=== PATIENT | female | born 1975 | race Caucasian/White ===

== ENCOUNTER → 2016-04-05 | Outpatient (CLI) | payer OTHER ==
[~2016-04-05] MED LIST: ALBUAER19 INH; ARMO1TAB PO; CLL250 PO; CLX/20 PO; FLUV100T12 PO; LEVO25TA5 PO; LEVO50TA6 PO; MONT1TAB3 PO; ONDA4TAB10 SL; PYRI60TA2 PO
== END | disposition home or self-care (01) ==
LOC: C.LAB 16:19
PROVIDERS: ATTEND Obstetrics & Gynecology
DX: Z20.2 Contact with and (suspected) exposure to infections with a predominantly sexual mode of transmission (principal)

== ENCOUNTER 2016-04-27 10:05 | Emergency (ER) | payer OTHER ==
[~2016-04-27] VITALS: Ht 170.2 cm; Wt 77.9 kg
[~2016-04-27 10:05] MED LIST changes: -LEVO50TA6 PO; -ONDA4TAB10 SL
[2016-04-27 10:10] VITALS: TEMP 37.1; Ht 170.2 cm; Wt 77.9 kg
[2016-04-27] MEDS ORDERED: SODIUM CHLORIDE 0.9% 1000ML 1,000 ML IV STA (10:26)
[2016-04-27] MEDS ORDERED: KETOROLAC TROMETHAMINE 30 MG/ML VIAL IV STA (10:26)
[2016-04-27] MEDS ORDERED: PROCHLORPERAZINE 5 MG/ML 2 ML VIAL IV STA (10:26)
[2016-04-27] MEDS ORDERED: DiphenhydrAMINE HCL 50 MG/ML VIAL IV STA (10:26)
[2016-04-27] MEDS ORDERED: DEXAMETHASONE SOD INJ 10 MG/ML VIAL IV ONE (10:30)
--- NOTE | 2016-04-27 10:30 | EMERGENCY ROOM VISIT NOTE ---
History Report prepared by Matias: Segun Multani Under the Supervision of: Dr. Esau Kilgore M.D. First contact with patient: 10:13 Chief Complaint: DEHYDRATION Stated Complaint: PAIN IN JOINTS, N, MARINO, NO APPETITE AND FLUID INTAK Nursing Triage Summary: pt states was at urgent care on monday dx with sinus infection. loss of appetite since monday has not been eating unable to keep fluids down since yesterday. extreme pain in joints, neck, back, headache pain behind right eye History of Present Illness The patient is a 40 year old female who presents to the Emergency Room with complaints of a persistent severe headache for the past five days. The headache is localized to the front of her forehead and behind the eyes, and is worse on the right side. The patient states that this is the worst headache of her life. She also complains of body aches and vomiting. She has neck pain, which she feels is more muscular. She has been unable to keep fluids down since she started vomiting yesterday and notes that she feels dehydrated. The patient went to an urgent care clinic five days ago and was diagnosed with sinusitis. She never filled her prescription for Augmentin. She has been taking Excedrin and Sudafed OTC. The patient states that she has diarrhea, which is normal for her to have during her period. She has had migraines in the past, which usually include auras. She is not currently experiencing auras. The patient used to take Topamax, but stopped because her headaches resolved. She had brain imaging years ago. The patient followed up with Dr. Clifford, Neurologist, when she was having the headaches. The patient has a history of Myasthenia Gravis. Source of History: patient Onset: five days Position: head Symptom Intensity: severe Timing: other (persistent) Associated Symptoms: + diarrhea, + neck pain, + vomiting Review of Systems See HPI for pertinent positives & negatives. A total of 10 systems reviewed and were otherwise negative. Past Medical & Surgical Medical Problems: (1) Depression (2) Myasthenia gravis (3) Myasthenia gravis (4) Personality disorder Surgical Problems: (1) Hx of gastric bypass (2) Hx of tubal ligation Family History FH: diabetes mellitus FH: gallbladder disease FH: heart disease FH: hypertension Social History Smoking Status: Never Smoker Alcohol Use: occasionally Drug Use: none Marital Status: Housing Status: lives with family Occupation Status: employed Current/Historical Medications Scheduled Armodafinil (Nuvigil), 1 TAB PO QAM Citalopram (Citalopram Hydrobromide), 20 MG PO QPM Fluvoxamine Maleate (Luvox), 100 MG PO QPM Levothyroxine Sodium (Levothyroxine Sodium), 1 TAB PO DAILY Montelukast Sodium (Singulair), 10 MG PO QPM Mycophenolate Mofetil (Mycophenolate Mofetil), 250 MG PO BID Ondasetron Odt (Zofran Odt), 4 MG SL Q6H Pyridostigmine [place] (Mestinon), 60 MG PO QID Scheduled PRN Albuterol Inhaler (Ventolin Inhaler), 2 PUFFS INH QID PRN for EXERCISE Allergies Coded Allergies: Latex1 -Allergic Contact Dermititis (Verified Allergy, Unknown, 04/27/16) Morphine (Verified Adverse Reaction, Mild, GI SYMPTOMS, 04/27/16) Physical Exam Vital Signs Date Time Temp Pulse Resp B/P Pulse Ox O2 Delivery O2 Flow Rate FiO2 04/27/16 12:36 60 16 111/64 96 04/27/16 11:17 63 98/56 71 114/71 69 117/75 04/27/16 10:10 37.1 64 18 127/83 100 Room Air Physical Exam GENERAL: Patient is a healthy-appearing well-nourished HEAD: Normocephalic atraumatic EYES: Ocular movements intact pupils equal and react to light OROPHARYNX mucous membranes are moist no exudates present no erythema or edema present NECK: Supple no nuchal rigidity. No evidence of meningitis or encephalitis on exam. CHEST: Good equal expansion LUNGS: Clear and equal to auscultation CARDIAC: Normal S1 and S2 ABDOMEN: Soft nontender no guarding BACK: No CVA tenderness EXTREMITIES: No pain upon palpation normal muscle strength in all groups no clubbing cyanosis or edema NEURO: Patient is following commands is answering questions appropriately. Alert and oriented x3 Cranial Nerves 2-12 grossly intact Medical Decision & Procedures ER Provider Diagnostic Interpretation: CT results as stated below per my review and radiologist interpretation: CT HEAD WITHOUT CONTRAST (CT) CLINICAL HISTORY: Severe headache COMPARISON STUDY: 1714 TECHNIQUE: Axial CT of the brain is performed from the vertex to the skull base. IV contrast was not administered for this examination. CT DOSE: 638.56 mGycm FINDINGS: No intra or extra-axial mass lesions are visualized. There is no CT evidence of acute cortical infarction. There is no evidence of midline shift. There is no acute hemorrhage. No calvarial fractures are visualized. There is no evidence of pathologic ventricular dilatation. There is no evidence of acute sinusitis IMPRESSION: No acute intracranial findings Electronically signed by: Moreno Hart M.D. 04/27/2016 11:10 AM Dictated Date/Time: 04/27/2016 11:09 AM Laboratory Results 04/27/16 10:37 Red Blood Count 4.12, Mean Corpuscular Volume 98.8, Mean Corpuscular Hemoglobin 34.0, Mean Corpuscular Hemoglobin Concent 34.4, Mean Platelet Volume 9.0, Neutrophils (%) (Auto) 84.9, Lymphocytes (%) (Auto) 9.4, Monocytes (%) (Auto) 5.1, Eosinophils (%) (Auto) 0.3, Basophils (%) (Auto) 0.3, Neutrophils # (Auto) 2.81, Lymphocytes # (Auto) 0.31, Monocytes # (Auto) 0.17, Eosinophils # (Auto) 0.01, Basophils # (Auto) 0.01 04/27/16 10:37 Test 04/27/16 10:30 04/27/16 10:32 04/27/16 10:37 Urine Color DK YELLOW Urine Appearance CLEAR (CLEAR) Urine pH 5.0 (4.5-7.5) Urine Specific [place] 1.036 (1.000-1.030) Urine Protein NEG (NEG) Urine Glucose (UA) NEG (NEG) Urine Ketones TRACE (NEG) Urine Occult Blood TRACE (NEG) Urine Nitrite NEG (NEG) Urine Bilirubin NEG (NEG) Urine Urobilinogen NEG (NEG) Urine Leukocyte Esterase NEG (NEG) Urine WBC (Auto) 1-5 /hpf (0-5) Urine RBC (Auto) 0-4 /hpf (0-4) Urine Hyaline Casts (Auto) 5-10 /lpf (0-5) Urine Epithelial Cells (Auto) >30 /lpf (0-5) Urine Bacteria (Auto) NEG (NEG) Urine Test NEG (NEG) Influenza Type A (RT-PCR) Neg for Influ A (NEG) Influenza Type B (RT-PCR) Neg for Influ B (NEG) White Blood Count 3.31 K/uL (4.8-10.8) Red Blood Count 4.12 M/uL (4.2-5.4) Hemoglobin 14.0 g/dL (12.0-16.0) Hematocrit 40.7 % (37-47) Mean Corpuscular Volume 98.8 fL (80-100) Mean Corpuscular Hemoglobin 34.0 pg (25-34) Mean Corpuscular Hemoglobin Concent 34.4 g/dl (32-36) Platelet Count 152 K/uL (130-400) Mean Platelet Volume 9.0 fL (7.4-10.4) Neutrophils (%) (Auto) 84.9 % Lymphocytes (%) (Auto) 9.4 % Monocytes (%) (Auto) 5.1 % Eosinophils (%) (Auto) 0.3 % Basophils (%) (Auto) 0.3 % Neutrophils # (Auto) 2.81 K/uL (1.4-6.5) Lymphocytes # (Auto) 0.31 K/uL (1.2-3.4) Monocytes # (Auto) 0.17 K/uL (0.11-0.59) Eosinophils # (Auto) 0.01 K/uL (0-0.5) Basophils # (Auto) 0.01 K/uL (0-0.2) RDW Standard Deviation 47.4 fL (36.4-46.3) RDW Coefficient of Variation 13.0 % (11.5-14.5) Immature Granulocyte % (Auto) 0.0 % Immature Granulocyte # (Auto) 0.00 K/uL (0.00-0.02) Anion Gap 9.0 mmol/L (3-11) Est Creatinine Clear Calc Drug Dose 102.1 ml/min Estimated GFR () 109.4 Estimated GFR (Non- 94.4 BUN/Creatinine Ratio 20.1 (10-20) Bedside Glucose 71 mg/dl (70-90) Calcium Level 8.6 mg/dl (8.5-10.1) Total Bilirubin 0.9 mg/dl (0.2-1) Direct Bilirubin 0.2 mg/dl (0-0.2) Aspartate Amino Transf (AST/SGOT) 16 U/L (15-37) Alanine Aminotransferase (ALT/SGPT) 16 U/L (12-78) Alkaline Phosphatase 59 U/L (45-117) Total Protein 7.2 gm/dl (6.4-8.2) Albumin 3.9 gm/dl (3.4-5.0) Thyroid Stimulating Hormone (TSH) 2.540 uIu/ml (0.300-4.500) Lyme Disease IgG Antibody NEG (NEG) Lyme Disease IgM Antibody NEG (NEG) Monoscreen NEG (NEG) Labs reviewed by ED physician. Medications Administered Medications (Trade) Dose Ordered Sig/Dominic Route Start Time Stop Time Status Last Admin Dose Admin Sodium Chloride (Nss 1000ml) 1,000 ml @ 999 mls/hr Q1H1M STAT IV 04/27/16 10:26 04/27/16 11:26 DC 04/27/16 11:38 999 MLS/HR Ketorolac Tromethamine (Toradol Inj) 30 mg NOW STAT IV 04/27/16 10:26 04/27/16 10:29 DC 04/27/16 11:38 30 MG Prochlorperazine Edisylate (Compazine Inj) 5 mg NOW STAT IV 04/27/16 10:26 04/27/16 10:29 DC 04/27/16 11:38 5 MG Dexamethasone Sodium Phosphate (Decadron Inj) 10 mg NOW ONCE IV 04/27/16 10:30 04/27/16 10:31 DC 04/27/16 11:36 10 MG Diphenhydramine HCl (Benadryl Inj) 50 mg NOW STAT IV 04/27/16 10:26 04/27/16 10:29 DC 04/27/16 11:36 50 MG ECG Indication: other (severe headache) Rate (beats per minute): 58 Rhythm: sinus bradycardia Findings: no acute ischemic change, no ectopy, other (normal EKG) ED Course 1015: Past medical records reviewed. The patient was evaluated in room A3. A complete history and physical examination was performed. 1026: Benadryl 50 mg IV, Compazine 5 mg IV, Toradol 30 mg IV, NSS 1000 ml @ 999 mls/hr. 1030: Decadron 10 mg IV. 1120: Checked on the patient. She hasn't had her medications yet. 1201: Updated the patient on the findings. 1230: Reassessed the patient. Explained everything to her. She verbalized understanding and agreement. The patient is ready for discharge. Medical Decision Etiologies such as viral syndrome, otitis, pharyngitis, pneumonia, influenza, meningitis, urinary tract infection, sepsis, bacteremia, as well as others were entertained. This is a 40-year-old female who presents emergency department complaining of multiple complaints. The patient has no evidence of meningitis encephalitis on examination. The patient does have a slight L depression in her white blood count which I believe would be consistent with a viral infection. An IV was established, the patient given normal saline bolus, Toradol, Compazine, Benadryl , Decadron. Repeat examination revealed much improvement the patient's symptoms. Patient's CAT scan of her head does not show any evidence of acute process. I then discussed having a lumbar puncture with the patient who at this point is refusing as she is feeling much better. I strongly cautioned her to return return to emergency department if her symptoms worsen. Patient was in agreement with the treatment plan. Impression Primary Impression: Headache Scribe Attestation The scribe's documentation has been prepared under my direction and personally reviewed by me in its entirety. I confirm that the note above accurately reflects all work, treatment, procedures, and medical decision making performed by me. Departure Information Dispostion Home / Self-Care Prescriptions Ondasetron Odt (ZOFRAN ODT) 4 Mg Tab 4 MG SL Q6H for Nausea, #6 TAB Prov: Esau Kilgore MD 04/27/16 Referrals John Yang M.D.([facility]) (PCP) Forms HOME CARE DOCUMENTATION FORM, IMPORTANT VISIT INFORMATION, WORK / SCHOOL INSTRUCTIONS Patient Instructions ED Headache Migraine, Headache Pain, My [facility] Additional Instructions Follow up with DR Clifford's office You have been examined and treated today on an emergency basis only. This is not a substitute for, or an effort to provide, complete comprehensive medical care. It is impossible to recognize and treat all injuries or illnesses in a single emergency department visit. It is therefore important that you follow up closely with Dr Clifford. Call as soon as possible for an appointment. Thank you for your time and consideration. I look forward to speaking with you again soon. Please don't hesitate to call us if you have any questions. Problem Qualifiers Primary Impression: Headache Headache type: unspecified Headache chronicity pattern: acute headache Intractability: not intractable Qualified Codes: R51 - Headache
[2016-04-27 10:53] LABS: BASO % 0.3 %; BASO ABS # 0.01 K/uL (0-0.2); COMPLETE YES; EOS % 0.3 %; HEMATOCRIT 40.7 % (37-47); LYMPH % 9.4 %; LYMPH ABS # 0.31 K/uL (1.2-3.4); MEAN CELL VOLUME 98.8 fL (80-100); MEAN CORPUSCULAR HGB CONC 34.4 g/dl (32-36); MONO % 5.1 %; NEUT % 84.9 %; PLATELET COUNT 152 K/uL (130-400); RED BLOOD COUNT 4.12 M/uL (4.2-5.4); WHITE BLOOD COUNT 3.31 K/uL (4.8-10.8)
[2016-04-27] MEDS ORDERED: LEVO50TA6 PO (10:55)
--- NOTE | 2016-04-27 11:12 | DIAGNOSTIC IMAGING REPORT ---
CT HEAD WITHOUT CONTRAST (CT) CLINICAL HISTORY: Severe headache COMPARISON STUDY: 1714 TECHNIQUE: Axial CT of the brain is performed from the vertex to the skull base. IV contrast was not administered for this examination. CT DOSE: 638.56 mGycm FINDINGS: No intra or extra-axial mass lesions are visualized. There is no CT evidence of acute cortical infarction. There is no evidence of midline shift. There is no acute hemorrhage. No calvarial fractures are visualized. There is no evidence of pathologic ventricular dilatation. There is no evidence of acute sinusitis IMPRESSION: No acute intracranial findings Electronically signed by: Moreno Hart M.D. 04/27/2016 11:10 AM Dictated Date/Time: 04/27/2016 11:09 AM
[2016-04-27 11:14] LABS: BUN/CREATININE RATIO 20.1 (10-20); CALCIUM 8.6 mg/dl (8.5-10.1); CREATININE 0.78 mg/dl (0.60-1.20); POTASSIUM 3.8 mmol/L (3.5-5.1)
[2016-04-27 11:16] LABS: URINE APPEARANCE CLEAR (CLEAR); URINE BILIRUBIN NEG (NEG); URINE COLOR DK YELLOW; URINE EPITHELIAL CELL AUTO >30 /lpf (0-5); URINE NITRITE NEG (NEG); URINE SPECIFIC GRAVITY 1.036 (1.000-1.030); UROBILINOGEN NEG (NEG); ZZUR CULT IF INDIC CLEAN CATCH NO
[2016-04-27 11:19] LABS: MANUAL MICROSCOPIC REQUIRED? NO; REVIEW REQ? NO
[2016-04-27 11:24] LABS: THYROID STIMULATING HORMONE 2.54 uIu/ml (0.300-4.500)
[2016-04-27 11:59] LABS: LYME DISEASE AB IGG NEG (NEG); LYME DISEASE AB IGM NEG (NEG)
[2016-04-27] MEDS ORDERED: ONDA4TAB10 SL (12:27)
[2016-04-27 12:36] VITALS: BP 111/64; PULSE 60; O2SAT 96
[2016-04-27 13:05] LABS: INFLUENZA A PCR Neg for Influ A (NEG); INFLUENZA B PCR Neg for Influ B (NEG)
[2016-04-28 13:54] LABS: EBV EARLY ANTIGEN AB <0.91 INDEX; EPSTEIN BARR VIR CAPSID IGG 4.21 INDEX
== END 2016-04-27 12:37 | disposition home or self-care (01) ==
LOC: C.EDB 10:06 → C.EDA 12:37
DX: R51 Headache (principal); F32.9 Major depressive disorder, single episode, unspecified; G70.00 Myasthenia gravis without (acute) exacerbation; F60.9 Personality disorder, unspecified; Z98.84 Bariatric surgery status; Z79.899 Other long term (current) drug therapy

== ENCOUNTER 2017-02-12 20:26 | Emergency (ER) | payer OTHER ==
[~2017-02-12] VITALS: Ht 170.2 cm; Wt 68.0 kg
[~2017-02-12 20:26] MED LIST changes: -LEVO25TA5 PO; +LEVO50TA6 PO
[2017-02-12 20:31] VITALS: TEMP 36.8; Ht 170.2 cm; Wt 68.0 kg
[2017-02-12] MEDS ORDERED: IBUPROFEN 600 MG TAB PO STA (21:00)
[2017-02-12] MEDS ORDERED: ACETAMINOPHEN 500 MG TAB PO STA (21:00)
--- NOTE | 2017-02-12 21:00 | EMERGENCY ROOM VISIT NOTE ---
History Report prepared by Matias: Robb De Oliveira Under the Supervision of: Dr. Ryland Zapata M.D. First contact with patient: 20:43 Chief Complaint: KNEEPAIN Stated Complaint: HYPEREXTEN INJURY L KNEE History of Present Illness The patient is a 41 year old female with a past medical history of narcolepsy, anxiety, OCD, and depression who presents to the ED with a cc of left knee pain beginning tonight. Positive foot pain. The patient states that her daughter passed out as she was putting earrings into her ear. She notes that her daughter fell on her knee as she passed out. She reports that her knee is painful on the "inside" but states that she is able to walk. The patient states that she is also experiencing foot pain due to a broken toe. She rates her pain a 7/10. Source of History: patient Onset: tonight Position: knee (left) Symptom Intensity: 7/10 Timing: constant Note: the patient also complains of foot pain. Review of Systems See HPI for pertinent positives and negatives. A total of ten systems were reviewed and were otherwise negative. Past Medical & Surgical Medical Problems: (1) Anxiety (2) Depression (3) Myasthenia gravis (4) Myasthenia gravis (5) OCD (obsessive compulsive disorder) (6) Personality disorder Surgical Problems: (1) Hx of gastric bypass (2) Hx of tubal ligation Family History FH: diabetes mellitus FH: gallbladder disease FH: heart disease FH: hypertension Social History Smoking Status: Never Smoker Alcohol Use: occasionally Drug Use: none Marital Status: Housing Status: lives with family Occupation Status: employed Current/Historical Medications Scheduled Armodafinil (Nuvigil), 1 TAB PO QAM Citalopram (Citalopram Hydrobromide), 20 MG PO QPM Fluvoxamine Maleate (Luvox), 100 MG PO QPM Levothyroxine Sodium (Levothyroxine Sodium), 1 TAB PO DAILY Montelukast Sodium (Singulair), 10 MG PO QPM Mycophenolate Mofetil (Mycophenolate Mofetil), 250 MG PO BID Pyridostigmine [place] (Mestinon), 60 MG PO QID Scheduled PRN Albuterol Inhaler (Ventolin Inhaler), 2 PUFFS INH QID PRN for EXERCISE Allergies Coded Allergies: Latex1 -Allergic Contact Dermititis (Verified Allergy, Unknown, 02/12/17) Morphine (Verified Adverse Reaction, Mild, GI SYMPTOMS, 02/12/17) Physical Exam Vital Signs Date Time Temp Pulse Resp B/P (MAP) Pulse Ox O2 Delivery O2 Flow Rate FiO2 02/12/17 22:44 53 15 118/73 96 02/12/17 20:31 36.8 89 18 138/85 100 Room Air Physical Exam GENERAL: Awake, alert, well-appearing, NAD HENT: Normocephalic, atraumatic. EYES: Normal conjunctiva. Sclera non-icteric. NECK: Supple. No nuchal rigidity. FROM. RESPIRATORY: CTAB, no rhonchi, wheezing, crackles CARDIAC: RRR, no MRG ABDOMEN: Soft, NTND, BS+ MSK: No chest wall TTP, no LE edema. LLE NVI distal to knee sp/dp/tib nerves, pain with valgus stress, no pain with verus, no thight pain, tenderness along medial joint line. NEURO: GCS 15, CN 2-12 intact, moves all 4s on command SKIN: No rash or jaundice noted. Medical Decision & Procedures ER Provider Diagnostic Interpretation: Radiology results as stated below per my review and radiologist interpretation: L KNEE 3 VIEWS FINDINGS: Small joint effusion and mild soft tissue swelling. No acute fracture, dislocation or significant degenerative changes. No intra-articular loose body. IMPRESSION: Small joint effusion and mild soft tissue swelling without acute fracture or dislocation. The above report was generated using voice recognition software. It may contain grammatical, syntax or spelling errors. Electronically signed by: Louie Giron M.D. 02/12/2017 9:44 PM Medications Administered Medications (Trade) Dose Ordered Sig/Dominic Route Start Time Stop Time Status Last Admin Dose Admin Ibuprofen (Motrin Tab) 600 mg NOW STAT PO 02/12/17 21:00 02/12/17 21:02 DC 02/12/17 21:08 600 MG Acetaminophen (Tylenol Tab) 1,000 mg NOW STAT PO 02/12/17 21:00 02/12/17 21:02 DC 02/12/17 21:08 1,000 MG ED Course 2049: The patient was evaluated in room C11. A complete history and physical exam was performed. 3: I reevaluated and updated the patient. 2246: I reevaluated the patient. Discussed results and discharge instructions: She verbalized understanding and agreement. The patient is ready for discharge. Medical Decision The patient is a 41 year old female with a past medical history of narcolepsy, anxiety, OCD, and depression who presents to the ED with a cc of left knee pain beginning tonight. Positive foot pain. Differentials include fracture, sprain, strain, MSK pain, and meniscus tear. Patient was seen and evaluated at the bedside. Patient sustained her child falling onto her left knee and it sounds like a hyperextension type injury. Patient is not taking any blood thinning medications. Patient has a normal neurologic exam. Patient does complain of some pain with valgus stress. Patient does not have any anterior laxity with Kaya's test. Patient may have an MCL type strain and sprain work tear. This may also be meniscal in nature. Patient did have a knee film that was completed which is negative for acute fracture or dislocation. Patient was placed in a knee immobilizer and given an ice pack. Patient was told to continue to rest, ice, compress, and elevate the extremity. Patient was told to remove the knee immobilizer in the evening and see if her pain improves. Patient was told that if her pain does not improve or she has painful ambulation after 3-4 days she should consider follow-up with orthopedist. Patient was agreeable with this plan of care. Patient was deemed suitable for outpatient follow-up and treatment. Patient was given strict follow-up, discharge, and return precautions. All questions were answered. Patient was deemed suitable for outpatient follow-up at this time. Patient agreed with the plan of care and was safely discharged home. Blood Pressure Screening Patient's blood pressure: Normal blood pressure Blood pressure disposition: Did not require urgent referral Impression Primary Impression: Knee pain Scribe Attestation The scribe's documentation has been prepared under my direction and personally reviewed by me in its entirety. I confirm that the note above accurately reflects all work, treatment, procedures, and medical decision making performed by me. Departure Information Dispostion Home / Self-Care Referrals John Yang M.D.([facility]) (PCP) [facility] Forms HOME CARE DOCUMENTATION FORM, IMPORTANT VISIT INFORMATION Patient Instructions ED RICE, Knee Pain, My [facility] Additional Instructions Please return to the emergency department if you have worsening or recurrent symptoms not amenable to at-home treatment. Please call for a follow-up appointment with her primary care physician. Please take your medications as prescribed. If you have other concerns and/or complaints please feel free to also call your primary care physician's office or return the ED for further evaluation, management, and treatment. You may take 600 mg Ibuprofen every 6 hours as needed for pain with food for no more than 2 consecutive days. You may take tylenol 1000 mg every 6 hours as needed for pain. You may take motrin and tylenol separately or at the same time. Take your medications as prescribed. If taking an antibiotic consider taking a probiotic and/or eating yogurt, but at the least, please take with food as it can cause upset stomach. Please call for follow up with an orthopedist if you have persistent pain. You have been examined and treated today on an emergency basis only. This is not a substitute for, or an effort to provide, complete comprehensive medical care. It is impossible to recognize and treat all injuries or illnesses in a single emergency department visit. It is therefore important that you follow up closely with [facility], your PCP, and/or your specialist(s). Call as soon as possible for an appointment. Thank you for your time and consideration. I look forward to speaking with you again soon. Please don't hesitate to call us if you have any questions. Problem Qualifiers Primary Impression: Knee pain Chronicity: acute Laterality: left Qualified Codes: M25.562 - Pain in left knee
--- NOTE | 2017-02-12 21:45 | DIAGNOSTIC IMAGING REPORT ---
L KNEE 3 VIEWS HISTORY: 41 years-old Female hyperextension, pain s/p trauma acute left knee pain status post hyperextension injury COMPARISON: None available TECHNIQUE: 3 views of the left knee FINDINGS: Small joint effusion and mild soft tissue swelling. No acute fracture, dislocation or significant degenerative changes. No intra-articular loose body. IMPRESSION: Small joint effusion and mild soft tissue swelling without acute fracture or dislocation. The above report was generated using voice recognition software. It may contain grammatical, syntax or spelling errors. Electronically signed by: Louie Giron M.D. 02/12/2017 9:44 PM Dictated Date/Time: 02/12/2017 9:43 PM
[2017-02-12 22:44] VITALS: BP 118/73; PULSE 53; O2SAT 96
== END 2017-02-12 22:46 | disposition home or self-care (01) ==
LOC: C.EDB 20:28 → C.EDC 22:46
DX: M25.562 Pain in left knee (principal); F41.9 Anxiety disorder, unspecified; F32.9 Major depressive disorder, single episode, unspecified; G70.00 Myasthenia gravis without (acute) exacerbation; F42.9 Obsessive-compulsive disorder, unspecified; F60.9 Personality disorder, unspecified; Z83.3 Family history of diabetes mellitus; Z82.49 Family history of ischemic heart disease and other diseases of the circulatory system

== ENCOUNTER → 2017-07-07 | Outpatient (CLI) | payer OTHER | END | disposition home or self-care (01) | LOC: C.LAB 08:17 | PROVIDERS: ATTEND Psychiatry & Neurology Neurology | DX: G70.00 Myasthenia gravis without (acute) exacerbation (principal); R53.83 Other fatigue; G43.009 Migraine without aura, not intractable, without status migrainosus; F41.8 Other specified anxiety disorders; E55.9 Vitamin D deficiency, unspecified; M25.50 Pain in unspecified joint ==

== ENCOUNTER → 2017-10-24 | Outpatient (CLI) | payer OTHER ==
[~2017-10-24] MED LIST changes: -CLL250 PO; +OXYC1CAP5 PO
== END | disposition home or self-care (01) ==
LOC: C.PAPS 15:37
PROVIDERS: ATTEND Obstetrics & Gynecology
DX: Z01.419 Encounter for gynecological examination (general) (routine) without abnormal findings (principal)

== ENCOUNTER 2017-11-15 07:09 | Emergency (ER) | payer OTHER ==
[~2017-11-15] VITALS: Ht 170.2 cm; Wt 89.4 kg
[~2017-11-15 07:09] MED LIST changes: -OXYC1CAP5 PO
[2017-11-15 07:14] VITALS: TEMP 36.6; Ht 170.2 cm; Wt 89.4 kg
[2017-11-15] MEDS ORDERED: KETOROLAC TROMETHAMINE 30 MG/ML VIAL IV STA (07:32)
[2017-11-15] MEDS ORDERED: SODIUM CHLORIDE 0.9% 1000ML 1,000 ML IV STA (07:32)
--- NOTE | 2017-11-15 07:32 | EMERGENCY ROOM VISIT NOTE ---
ED Visit Note First contact with patient: 07:14 Resident Physician Supervision Note: I interviewed and examined the patient. Discussed with Dr. Garcia and agree with findings and plan as documented in the note. Documented By: Esau Kilgore
--- NOTE | 2017-11-15 07:45 | EMERGENCY ROOM VISIT NOTE ---
History First contact with patient: 07:32 Chief Complaint: HAND PAIN/INJURY Stated Complaint: BLISTERS ON BOTH HANDS AND GOING UP ARMS History of Present Illness The patient is a 42 year old female who presents to the Emergency Room with complaints of worsening pain in her hands and feet. Pt was seen by [facility] yesterday and was diagnosed with Hand, Foot and Mouth disease. She took Aspirin for her symptoms without relief. She is wondering if her pain is normal and if there's anything else she can do for the pain. She is tolerating PO intake. She states she was febrile last Monday (5 days prior) and also had a sore throat at that time. She works at the desk interviewer for a dentists office. She has only had coffee to drink today. She does have a PCP but states he is impossible to get into. There is a woman at her work unfortunately. Review of Systems See HPI for pertinent positives and negatives. A total of ten systems were reviewed and were otherwise negative. Constitutional: No fever Eyes: No worsening of vision ENT: No hearing loss Respiratory: No cough, No sputum, No shortness of breath, No dyspnea on exertion Cardiovascular: No chest pain, No edema Abdomen: No pain, No nausea, No vomiting, No diarrhea Musculoskeletal: + problem reported (hand and foot pain) Genitourinary - Female: No dysuria, No urinary frequency, No urinary urgency Neurologic: No memory loss Psychiatric: No depression symptoms Integumentary: + rash Past Medical/Surgical History Medical Problems: (1) Anxiety (2) Depression (3) Myasthenia gravis (4) Myasthenia gravis (5) OCD (obsessive compulsive disorder) (6) Personality disorder Surgical Problems: (1) Hx of gastric bypass (2) Hx of tubal ligation Family History FH: diabetes mellitus FH: gallbladder disease FH: heart disease FH: hypertension Social History Smoking Status: Never Smoker Alcohol Use: occasionally Drug Use: none Marital Status: Housing Status: lives with family Occupation Status: employed Current/Historical Medications Scheduled Armodafinil (Nuvigil), 1 TAB PO QAM Citalopram (Citalopram Hydrobromide), 20 MG PO QPM Fluvoxamine Maleate (Luvox), 100 MG PO QPM Levothyroxine Sodium (Levothyroxine Sodium), 1 TAB PO DAILY Montelukast Sodium (Singulair), 10 MG PO QPM Pyridostigmine [place] (Mestinon), 60 MG PO QID Scheduled PRN Albuterol Inhaler (Ventolin Inhaler), 2 PUFFS INH QID PRN for EXERCISE Physical Exam Vital Signs Date Time Temp Pulse Resp B/P (MAP) Pulse Ox O2 Delivery O2 Flow Rate FiO2 11/15/17 07:14 36.6 73 18 123/75 99 Room Air Physical Exam Gen: No acute distress. HEENT: Head - normocephalic and atraumatic. Pupils are equal, round, and reactive to light. Extraocular eye muscles are intact and sclera are anicteric. Ears - bilaterally patent canals with noninjected tympanic membranes and no evidence of hemotympanum. Nose - moist nasal mucosa without discharge. Mouth - moist buccal mucosa with red and white lesions consistent with a viral illness. no tonsillar exudate or edema noted. SKIN: Innumerable erythematous lesions and the hands and feet bilaterally. There is one blistering lesions on the 3rd phalanx of the right hand. Otherwise lesions are not elevated. Mildly tender. Do not significantly progress past the wrists or ankles. Neck: Supple; no JVD, nuchal rigidity, cervical lymphadenopathy, or auscultated bruits. Heart: Regular rate and rhythm. There is a normal S1 and S2 with no murmurs, clicks, or gallops appreciated. Lungs: Clear to auscultation bilaterally with no wheezes, rales, or rhonchi. Abdomen: Soft, completely nontender, nondistended, with good bowel sounds. There are no palpable pulsatile masses or hepatosplenomegaly. There is no guarding, rigidity, or rebound noted. Extremities: No evidence of cyanosis, clubbing, or edema. There are easily palpable peripheral pulses. Neuro:The patient is awake and alert, oriented to day, time, and place. Muscle strength is 5/5 in all 4 extremities. The patient has equal nail galvanizer strength and equal pedal push and pull. There are no cerebellar signs. Medical Decision & Procedures Medical Decision The patient's care and disposition was discussed with Dr. Kilgore, Attending ED Physician. This is a 42F with hand foot and mouth disease. Differential diagnosis include febrile illness, ITP, bacterial dermatitis, contact dermatitis, bug bites and malingering. Triage Nursing notes were reviewed. ED Course included an extensive history and physical exam. 7:30AM - Pt was examined at bedside and case discussed with Dr. Kilgore. Saline bolus and Toradol were ordered. Work excuse given for 3 days. Information on hand foot and mouth was also printed for the patient. 8:00AM - Pt was re-examined and discharged in good condition. After further discussion it was decided to not administer the Saline and Toradol. Pt was advised to avoid close contact with women. She can be contagious for months afterwards. Information on Hand, Foot and Mouth disease was printed for patient on discharge. The pt was informed about the findings as listed above. All questions were answered. The patient was referred to PCP for recheck of the current condition. Impression Primary Impression: Hand, foot and mouth disease Departure Information Dispostion Home / Self-Care Condition GOOD Referrals John Yang M.D.(YOVANY) (PCP) Patient Instructions My [facility] Resident Involvement: Resident Care Provided Care Provided: Adult ED
[2017-11-15 08:34] VITALS: BP 126/77; PULSE 69; O2SAT 100
== END 2017-11-15 08:15 | disposition home or self-care (01) ==
LOC: C.EDB 07:11 → C.EDA 08:15
DX: B08.4 Enteroviral vesicular stomatitis with exanthem (principal); F41.8 Other specified anxiety disorders; Z79.899 Other long term (current) drug therapy